=== PATIENT | male | born 1990 | race Caucasian/White ===

== ENCOUNTER 2020-11-04 21:39 | Emergency (ER) | payer OTHER ==
[~2020-11-04] VITALS: Ht 175.2 cm; Wt 81.6 kg
[~2020-11-04 21:39] MED LIST: AMOXICILLIN500 M3 PO
[2020-11-04 22:39] LABS: BASO # 0.1 10*3/uL (0.0-0.1); BASO % 0.5 % (0.0-1.0); EOS # 0.1 10*3/uL (0.0-0.4); LYMPH # 1.5 10*3/uL (1.3-4.4); LYMPH % 14.8 % (27.0-41.0); MEAN CORPUSCULAR HGB 30.5 pg (27.0-31.0); MEAN CORPUSCULAR HGB CONC 33.1 g/dl (33.0-37.0); MEAN PLATELET VOLUME 9.8 fl (9.6-12.3); MONO # 0.7 10*3/uL (0.1-1.0); MONO % 7.4 % (3.0-9.0); NEUT # 7.6 10*3/uL (2.3-7.9); PLATELET COUNT AUTOMATED 246 10*3/uL (130-400); RED BLOOD COUNT 4.89 10*6/uL (4.50-5.90); RED CELL DISTRI WIDTH 13.2 % (0-14.5); WHITE BLOOD COUNT 9.9 10*3/uL (4.8-10.8)
[2020-11-04 22:56] LABS: ALBUMIN 4.2 gm/dl (3.1-4.5); ALKALINE PHOSPHATASE 84 U/L (45-117); BUN 17 mg/dl (7-24); CHLORIDE 102 mmol/L (98-107); CREATININE 0.94 mg/dL (0.70-1.30); POTASSIUM 3.7 mmol/L (3.5-5.1); SGOT/AST 19 IU/L (3-35); SGPT/ALT 27 U/L (12-78); SODIUM 139 mmol/L (136-145); TOTAL PROTEIN 7.2 gm/dL (6.4-8.2)
[2020-11-04] MEDS ORDERED: CLEOCIN HCL300 MG PO (23:45)
== END 2020-11-05 00:20 | disposition home or self-care (01) ==
LOC: ED 21:39
PROVIDERS: Nurse Practitioner
DX: L03.113 Cellulitis of right upper limb (principal); L02.413 Cutaneous abscess of right upper limb; Z79.899 Other long term (current) drug therapy

== ENCOUNTER 2024-12-12 17:08 | Emergency (ER) | payer OTHER ==
[~2024-12-12] VITALS: Ht 175.2 cm; Wt 105.7 kg
[~2024-12-12 17:08] MED LIST changes: +CLEOCIN HCL300 MG PO
== END 2024-12-12 19:23 | disposition left against medical advice (07) ==
LOC: ED 17:08
DX: S89.91XA Unspecified injury of right lower leg, initial encounter (principal); Z53.21 Procedure and treatment not carried out due to patient leaving prior to being seen by health care provider; X58.XXXA Exposure to other specified factors, initial encounter; Y93.89 Activity, other specified; Y92.89 Other specified places as the place of occurrence of the external cause; Y99.8 Other external cause status